=== PATIENT | male | born 1995 | race African-American/Black ===

== ENCOUNTER 2022-12-26 07:35 | Emergency (ER) | payer OTHER ==
[~2022-12-26] VITALS: Ht 180.3 cm; Wt 99.8 kg
[2022-12-26 07:39] VITALS: BP 130/44
--- NOTE | 2022-12-26 07:51 | NUR ---
27 Y/O MALE C/O COUGH, AND "FEELING LIKE HE CANT BREATHE" X15 MINUTES. SPEAKING IN FULL SENTENCES. PER PT HE WOKE UP TODAY WITH THE SENSATION. DENIES ANY CP, NO WOB NOTED, SATTING 99% RA. NKA PMH: ASTHMA
[2022-12-26] MEDS ORDERED: KETOROLAC 15 MG/ML VIAL IM ONE (08:05)
--- NOTE | 2022-12-26 08:17 | NUR ---
LAB AT BEDSIDE ATTEMPTING TO DRAW BLOOD, PT REFUSING LAB DRAW. INFORMED OF RISKS AND BENEFITS, STATES UNDERSTANDING BUT CONTINUES TO REFUSE
--- NOTE | 2022-12-26 08:27 | NUR ---
RAD AT PT SIDE FOR XRAY, PT REFUSING XRAY, STATES THAT HE "JUST WANTS AN INHALER", DR MONIQUE MADE AWARE
[2022-12-26] MEDS ORDERED: IBUP-2213 PO (08:34)
[2022-12-26] MEDS ORDERED: ALBU0.0912 IH (08:34)
--- NOTE | 2022-12-26 08:40 | NUR ---
Patient does not wish to proceed with medical care recommended by DR MONIQUE. Patient given information related to possible complications, up to and including , which could occur as a result of leaving hospital at this time. Patient verbalizes understanding of risks involved leaving against medical advice. Patient has signed AMA form.
== END 2022-12-26 08:40 | disposition left against medical advice (07) ==
LOC: MED 07:35
DX: R06.02 Shortness of breath (principal); R07.9 Chest pain, unspecified; J45.909 Unspecified asthma, uncomplicated; Z79.899 Other long term (current) drug therapy
CPT/HCPCS: 93005; 96372; 99283; J1885